=== PATIENT | male | born 2000 | race Asian ===

== ENCOUNTER 2020-09-26 21:45 | Emergency (ER) | payer OTHER ==
[~2020-09-26] VITALS: Ht 175.3 cm; Wt 77.6 kg
[2020-09-26 22:20] LABS: PLATELET COUNT 234 K/uL (142-355)
[2020-09-26 22:23] LABS: SODIUM 135 mmol/L (136-145)
[2020-09-26 22:36] LABS: PARTIAL THROMBOPLASTIN TIME 24.1 SECONDS (24.5-33.6)
[2020-09-27 00:30] VITALS: BP 124/68; TEMP 98.4
== END 2020-09-27 00:47 | disposition home or self-care (01) ==
LOC: ED 21:45
PROVIDERS: Family Medicine
DX: R07.89 Other chest pain (principal); S00.83XA Contusion of other part of head, initial encounter; E11.649 Type 2 diabetes mellitus with hypoglycemia without coma; Z03.818 Encounter for observation for suspected exposure to other biological agents ruled out; W01.198A Fall on same level from slipping, tripping and stumbling with subsequent striking against other object, initial encounter; Y92.218 Other school as the place of occurrence of the external cause
CPT/HCPCS: 80053; 81000; 82550; 82553; 84484; 85008; 85027; 85610; 85730; 87635; 93005; 99283; U0003